=== PATIENT | female | born 1970 | race African-American/Black ===

== ENCOUNTER 2022-10-26 06:39 | Emergency (ER) | payer BC ==
[~2022-10-26] VITALS: Ht 162.6 cm; Wt 86.2 kg
== END 2022-10-26 09:03 | disposition home or self-care (01) ==
LOC: ER 06:39
DX: T15.92XA Foreign body on external eye, part unspecified, left eye, initial encounter (principal); Y92.89 Other specified places as the place of occurrence of the external cause